=== PATIENT | female | born 1960 | race Caucasian/White ===

== ENCOUNTER → 2018-06-18 | Outpatient (CLI) | payer OTHER ==
--- NOTE | 2018-06-19 12:25 | RADIOLOGY IMAGING REPORT ---
FACILITY: [facility] [place] PATIENT NAME: JASKARAN RIVAS : [id number] MR: [id number] V: [id number] EXAM DATE: [id number] ORDERING PHYSICIAN: XI MEDRANO TECHNOLOGIST: Caroline Aleman PROCEDURE:BILATERAL DIGITAL SCREENING MAMMOGRAM WITH CAD ASSISTED INTERPRETATION & 3D TOMOSYNTHESIS COMPARISON:None. Baseline INDICATIONS:screening FINDINGS: The breast tissue demonstrates scattered fibroglandular densities. There is no dominant mass, suspicious cluster of calcifications or persistent areas of architectural distortion. Vascular calcifications are noted in the Right breast which is a marker for HER disease. TECHNIQUE: BILATERAL CC & MLO 3D TOMOGRAPHIC IMAGES WERE OBTAINED. CAD WAS USED. DIAGNOSTIC CATEGORY 1--NEGATIVE. RECOMMENDATIONS: ROUTINE MAMMOGRAM AND CLINICAL EVALUATION IN 1 YR. IMPRESSION: BIRADS 1: Negative. Dictated by: Venkata Juarez M.D. on 06/19/2018 at 9:26 Transcribed by: CYDNEY on 06/19/2018 at 10:01 Approved by: Venkata Juarez M.D. on 06/19/2018 at 12:24 [facility]
== END ==
LOC: MAMO 11:29
PROVIDERS: ATTEND Physician Assistant
DX: Z12.31 Encounter for screening mammogram for malignant neoplasm of breast (principal)
CPT/HCPCS: 77063; 77067